=== PATIENT | male | born 1935 | race Caucasian/White ===

== ENCOUNTER 2017-01-08 22:20 | Emergency (ER) | payer MEDICARE ==
[~2017-01-08] VITALS: Ht 180.3 cm; Wt 100.0 kg
[~2017-01-08 22:20] MED LIST: CALCIU1 PO; CALCIUM + D PO; COQ-1030 M1 PO; EQ ASPIRIN LOW81 MG PO; HYDROCO/APAP1 T11 PO; KEFLEX500 MG PO; OMEGA 31000 MG PO; OMEPRAZOLE20 M2 PO; PLAVIX75 MG PO; PREDNISONE20 MG PO; SUPER B COMP PO; TED HOSE; VITAMIN C1000 MG PO; VITAMIN D31000 UNI1 PO; [UNRECOGNIZED DRUG - OTHER]; [UNRECOGNIZED DRUG - OTHER]
[2017-01-08] MEDS ORDERED: LISINOPRIL20 M1 PO (23:15)
[2017-01-08] MEDS ORDERED: DROXIA200 MG PO (23:18)
[2017-01-08 23:35] VITALS: BP 144/60
== END 2017-01-08 23:35 | disposition home or self-care (01) ==
LOC: ED 22:20
DX: S00.81XA Abrasion of other part of head, initial encounter (principal); S80.212A Abrasion, left knee, initial encounter; W01.0XXA Fall on same level from slipping, tripping and stumbling without subsequent striking against object, initial encounter; Y93.89 Activity, other specified; Y92.481 Parking lot as the place of occurrence of the external cause